=== PATIENT | male | born 1950 | race Caucasian/White ===

== ENCOUNTER 2018-10-29 12:01 | Inpatient (IN) ==
--- NOTE | 2018-10-29 13:11 | Emergency Department Note ---
History of Present Illness General Chief complaint: Cardiac Assessment Stated complaint: on-set afib/sob Source: patient Mode of arrival: ambulatory Limitations: no limitations History of Present Illness This patient is a 68-year-old male who presents to the emergency department from [facility] complaining of intermittent chest pain. He states that for the past 10 days, he has had pain in his chest with exertion. He states that when he walks to the dining diaz, he begins to develop cramps in his upper chest. He states the pain is an 8/10 and radiates into the throat. He states it becomes more severe the more that he exerts himself. The pain subsides when he stops walking and rests. He states that if he takes a leisurely walk, he does not develop chest pain. The last episode of pain was this morning. He states that he was evaluated by the medical team at the half-way and was found to have an abnormal heart rhythm. He states that he does not have any history of arrhythmias. The patient is a smoker. He states he is otherwise healthy. He denies any family history of heart disease. Patient denies any symptoms at this time. He denies any palpitations or shortness of breath. Home Medications Home Medications Medication Instructions Recorded Confirmed Type No Known Home Medications 10/29/18 10/29/18 History Allergies Allergy/AdvReac Type Severity Reaction Status Date / Time No Known Allergies Allergy Unverified 10/29/18 12:55 Past Med/Surg History Medical History Tobacco abuse Family History Mother Heart disease Social History Preferred Language: Kyrgyz Beliefs That Will Affect Care: None Current Living Situation: Other Current Living Situation Comment: [facility] Feels Safe at Home: Yes Smoking Status: Current every day smoker Tobacco Type: cigarettes Cigarettes Per Day: 10 Hx Alcohol Use: No Review of Systems A total of 10 systems reviewed and were otherwise negative Physical Exam Vital Signs Vital Signs - 24 hr 10/29/18 12:10 10/29/18 12:31 10/29/18 13:11 Temperature 36.7 C Temperature Source Oral Sepsis Recent Fever Within 48 Hours No Sepsis New/Unexplained Change in Mental Status No Sepsis Action Taken by Nursing No Action Required Pulse Rate 100 H 95 H 106 H Pulse Rate from SpO2 Sensor 91 H 92 H Pulse Rhythm Irregular Pulse Strength Normal Respiratory Rate 17 20 24 Respiratory Effort / Characteristics Non-Labored Spontaneous Respiratory Depth Normal Respiratory Pattern Regular Blood Pressure 126/79 114/86 142/83 H Blood Pressure Mean 94 95 102 Pulse Oximetry 99 97 97 Oxygen Delivery Method Room Air Room Air Room Air 10/29/18 13:31 10/29/18 14:01 10/29/18 14:31 Temperature Temperature Source Sepsis Recent Fever Within 48 Hours Sepsis New/Unexplained Change in Mental Status Sepsis Action Taken by Nursing Pulse Rate 108 H 100 H 98 H Pulse Rate from SpO2 Sensor 106 H 98 H 111 H Pulse Rhythm Pulse Strength Respiratory Rate 23 24 26 H Respiratory Effort / Characteristics Respiratory Depth Respiratory Pattern Blood Pressure 128/95 113/73 111/88 Blood Pressure Mean 106 86 95 Pulse Oximetry 96 96 97 Oxygen Delivery Method 10/29/18 15:00 Temperature Temperature Source Sepsis Recent Fever Within 48 Hours Sepsis New/Unexplained Change in Mental Status Sepsis Action Taken by Nursing Pulse Rate 106 H Pulse Rate from SpO2 Sensor 100 H Pulse Rhythm Pulse Strength Respiratory Rate 37 H Respiratory Effort / Characteristics Respiratory Depth Respiratory Pattern Blood Pressure 106/77 Blood Pressure Mean 86 Pulse Oximetry 96 Oxygen Delivery Method Room Air VITALS: Vitals are noted on the nurse's note and reviewed by myself. Vital signs stable. GENERAL: This is a 68-year-old male, in no acute distress, nondiaphoretic, well- developed well-nourished. SKIN: The skin was without rashes. EARS: External auditory canals clear, tympanic membranes pearly guerrero without erythema or effusion bilaterally. EYES: Pupils equal round and reactive to light and accommodation. MOUTH: Mucous membranes moist. Tonsils are not enlarged. Pharynx without erythema or exudate. NECK: Supple without nuchal rigidity. No lymphadenopathy. HEART: Irregularly irregular rhythm. No murmurs, gallops, or rubs. LUNGS: Clear to auscultation bilaterally without wheezes, rales or rhonchi. No retractions or accessory muscle use. ABDOMEN: Soft, nontender to palpation. EXTREMITIES: No peripheral edema. NEURO: Patient was alert and oriented to person place and time. Course Administered Medications Enoxaparin Sodium (Lovenox) 40 mg SQ Q24H REGAN Stop: 11/28/18 21:59 Last Admin: 10/29/18 21:41 Dose: 40 mg Documented by: [id number] Metoprolol Tartrate (Lopressor) 25 mg PO Q8H [facility]1983 Stop: 11/28/18 17:59 Last Admin: 10/29/18 18:40 Dose: 25 mg Documented by: [id number] Discontinued Medications Aspirin (Aspirin Chew) 324 mg PO NOW STA Stop: 10/29/18 14:28 Last Admin: 10/29/18 14:47 Dose: 324 mg Documented by: [id number] Heparin Sodium (Porcine) (Heparin Iv Bolus) 6,000 units IV NOW STA Stop: 10/29/18 14:53 Last Admin: 10/29/18 15:38 Dose: 6,000 units Documented by: [id number] Cosigned by: [id number] Heparin Sodium/Dextrose () 1 ea IV NOW [facility]; Protocol Stop: 10/29/18 14:36 Last Admin: 10/29/18 15:38 Dose: Not Given Documented by: [id number] Heparin Sodium/Dextrose (Heparin Sodium/Dextrose) 25,000 units in 500 mls @ 28 mls/hr IV .[id number] [facility], 1928–1983; Protocol Stop: 11/28/18 14:59 Last Titration: 10/29/18 17:05 Dose: 0 units/hr, 0 mls/hr Documented by: [id number] Cosigned by: [id number] Admin: 10/29/18 15:37 Dose: 1,400 units/hr, 28 mls/hr Documented by: [id number] Cosigned by: [id number] Medical Decision Making Differential Diagnosis Differential diagnosis includes acute coronary syndrome, pulmonary embolism, pneumothorax, pericarditis, myocarditis, endocarditis, anxiety, musculoskeletal pain, GERD, costochondritis, pneumonia, among others. Home Medications Current Medication List: was personally reviewed by me Laboratory Data Attestation: I reviewed the patient's lab results. Result diagrams: 10/29/18 12:29 10/29/18 12:29 Lab Results 10/29/18 10/29/18 10/29/18 Range/Units 12:29 12:29 14:51 WBC 5.54 (4.8-10.8) K/uL RBC 4.24 L (4.7-6.1) M/uL Hgb 14.0 (14.0-18.0) g/dL Hct 40.3 L (42-52) % MCV 95.0 (80-100) fL MCH 33.0 (25-34) pg MCHC 34.7 (32-36) g/dL RDW Std Deviation 45.2 (36.4-46.3) fL RDW Coeff of Yue 13.1 (11.5-14.5) % Plt Count 117 L (130-400) K/uL MPV 11.2 H (7.4-10.4) fL Immature Gran % (Auto) 0.0 % Neut % (Auto) 45.0 % Lymph % (Auto) 39.0 % [place] % (Auto) 13.2 % Eos % (Auto) 2.3 % Baso % (Auto) 0.5 % Immature Gran # (Auto) 0.00 (0.00-0.02) K/uL Neut # (Auto) 2.49 (1.4-6.5) K/uL Lymph # (Auto) 2.16 (1.2-3.4) K/uL [place] # (Auto) 0.73 H (0.11-0.59) K/uL Eos # (Auto) 0.13 (0-0.5) K/uL Baso # (Auto) 0.03 (0-0.2) K/uL PT 10.7 (9.0-12.0) Seconds INR 1.0 (0.9-1.1) APTT 28.3 (21.0-31.0) Seconds PTT Ratio 1.0 Sodium 143 (136-145) mmol/L Potassium 4.7 (3.5-5.1) mmol/L Chloride 110 H (98-107) mmol/L Carbon Dioxide 25 (21-32) mmol/L Anion Gap 7.0 (3-11) BUN 26 H (7-18) mg/dl Creatinine 1.13 (0.6-1.4) mg/dl Est Cr Clr Drug Dosing 69.7 ml/min Est GFR ( Amer) 78.1 Est GFR (Non-Af Amer) 67.4 BUN/Creatinine Ratio 22.6 H (10-20) Glucose 90 (70-99) mg/dl Calcium 9.3 (8.5-10.1) mg/dl Total Bilirubin 1.0 (0.2-1) mg/dl AST 23 (15-37) U/L ALT 44 (12-78) U/L Alkaline Phosphatase 120 H (45-117) U/L Troponin I 0.053 H* (0-0.045) ng/ml Total Protein 7.5 (6.4-8.2) gm/dl Albumin 4.0 (3.4-5.0) gm/dl Globulin 3.5 (2.5-4.0) gm/dl Albumin/Globulin Ratio 1.1 (0.9-2) Imaging Data Attestation: I personally reviewed and interpreted this imaging study as follows: Radiologist's Impression: XR chest 1V portable HISTORY: Atypical chest pain COMPARISON: None. FINDINGS: Pneumothorax. No pleural effusions. The heart is mildly enlarged. There is mild diffuse interstitial thickening with a hazy right base airspace opacity. The upper lung zones appear clear. IMPRESSION: 1. Mild diffuse interstitial thickening. This may be chronic. 2. Hazy appearance to the right lung base. This could represent atelectasis or developing pneumonia. ECG Data Attestation: I personally reviewed and interpreted this ECG as follows: Indication: chest pain Rate (beats per minute): 89 Rhythm: atrial fibrillation Findings: no acute ischemic change Comparison ECG Date: no prior available Blood Pressure Blood Pressure Findings: Normal blood pressure MDM Narrative The patient is a 68-year-old male who presents today complaining of episodes of chest pain ongoing over the past 10 days. Patient describes exertional chest pain. He was found to be in new onset atrial fibrillation at the present today. EKG here confirms atrial fibrillation. There are no acute ischemic changes found. Patient was found to have an elevation of his troponin at 0.053. Labs otherwise are unremarkable. Chest x-ray unremarkable. Patient was started on heparin and admitted to the [facility] for further evaluation and care. Impression & Plan Central chest pain, Atrial fibrillation, Elevated troponin Discharge Plan Visit Data *Final* Discharge Date/Time: 10/29/18 16:06 Chief Complaint: Cardiac Assessment Stated Complaint: on-set afib/sob ED Provider: Herrera Merino ED Midlevel Provider: Angelika Hernández Discharge Problem: Central chest pain, Atrial fibrillation, Elevated troponin Patient Disposition: Admitted As Inpatient Discharge Instructions Interventions: ED Discharge Assessment Last Done: 10/29/18 16:06 Discharge Problem: Atrial fibrillation Qualifiers: Atrial fibrillation type: unspecified Qualified Code(s): I48.91 - Unspecified atrial fibrillation
[2018-10-29 13:46] LABS: Basophils # (auto) 0.03 K/uL (0-0.2); Basophils % (auto) 0.5 %; Eosinophils # (auto) 0.13 K/uL (0-0.5); Eosinophils % (auto) 2.3 %; Hematocrit (blood only) 40.3 % (42-52); Lymphocytes # (auto) 2.16 K/uL (1.2-3.4); Mean Corpuscular Hgb Conc 34.7 g/dL (32-36); Mean Platelet Volume 11.2 fL (7.4-10.4); Monocytes # (auto) 0.73 K/uL (0.11-0.59); Monocytes % (auto) 13.2 %; Neutrophils # (auto) 2.49 K/uL (1.4-6.5); Platelet Count 117 K/uL (130-400); RDW Coefficient of Variation 13.1 % (11.5-14.5); RDW Standard Deviation 45.2 fL (36.4-46.3); Red Blood Count 4.24 M/uL (4.7-6.1); White Blood Count 5.54 K/uL (4.8-10.8)
[2018-10-29 13:54] LABS: BUN Creatinine Ratio 22.6 (10-20); Calcium 9.3 mg/dl (8.5-10.1); Creatinine Clr Calc Pharmacy 69.7 ml/min; Est GFR (African American) 78.1; Est GFR (Non-African American) 67.4; Potassium 4.7 mmol/L (3.5-5.1)
[2018-10-29 14:25] LABS: Albumin Globulin Ratio 1.1 (0.9-2); Globulin 3.5 gm/dl (2.5-4.0); Total Protein 7.5 gm/dl (6.4-8.2); Troponin I 0.053 ng/ml (0-0.045)
[2018-10-29] MEDS ORDERED: ASPIRIN 81 MG CHEW PO STA (14:27)
--- NOTE | 2018-10-29 14:50 | XRay Report ---
XR chest 1V portable HISTORY: Atypical chest pain COMPARISON: None. FINDINGS: Pneumothorax. No pleural effusions. The heart is mildly enlarged. There is mild diffuse int erstitial thickening with a hazy right base airspace opacity. The upper lung zones appear clear. IMPRESSION: 1. Mild diffuse interstitial thickening. This may be chronic. 2. Hazy appearance to the right lung base. This could represent atelectasis or developing pneumonia. Electronically signed by: Elliot Desouza M.D. 10/29/2018 2:48 PM
[2018-10-29] MEDS ORDERED: Heparin BOLUS **ED Use Only IV STA (14:52)
[2018-10-29] MEDS ORDERED: Heparin Adult STANDARD Wt-Based Dextrose 5% 25,000 units/500 mL IV SCH (15:00)
[2018-10-29 15:29] LABS: Partial Thromboplastin Time 28.3 Seconds (21.0-31.0); Prothrombin Time 10.7 Seconds (9.0-12.0)
[2018-10-29] MEDS ORDERED: ACETAMINOPHEN 325 MG TAB PO PRN (16:59)
[2018-10-29] MEDS: METOPROLOL TARTRATE 25 MG TAB PO SCH (18:40)
--- NOTE | 2018-10-29 18:55 | History & Physical Report ---
Date of Service October 29, 2018 Assessment & Plan (1) Atrial fibrillation with RVR: No hx of afib. Reports symptoms sounding like afib for several months. - CHADs-Vasc of 1 (age) - Will hold anticoagulation until seen by cardiology - Start beta-noris (metop 50mg PO Q8h) for rate control - Cardiology consult (2) Chest pain: Story is quite convincing for stable angina. No priors stress test or heart history. - Discussed with cardiology - Trend troponins and EKGs - Perfusion stress test tomorrow (3) Tobacco abuse: Long-standing smoking. Down to 06/05 to 06/03 ppd. No hx of COPD or other pulmonary issues. - Counseled cessation (4) DVT prophylaxis: SCDs - Low DVT risk per admission calculator History of Present Illness Primary Care Provider: JAELYN Leone 68yo M w/ hx of smoking who presents with chest pain and afib with RVR. Patient reports that for the last few months, he has had palpitations. He reports it as a "jittery-ness" that he thought was from smoking too much. He has cut back on his smoking down to a handful of cigarettes to try to compensate for this. In the last 9-10 days, he reports stable angina symptoms. When he works himself too hard, he notes chest pain in the left chest without radiation which he reports is accompanied with shortness of breath. He reports that when he sits down and rests, the chest pain resolves. It has never come on when he is resting. He denies any headache, diaphoresis, nausea, GERD, lightheadedness, or dizziness with the pain. He has no relieving factors apart from resting. Allergies Allergy/AdvReac Type Severity Reaction Status Date / Time No Known Allergies Allergy Unverified 10/29/18 12:55 Home Medications Home Medications Medication Instructions Recorded Confirmed Type No Known Home Medications 10/29/18 10/29/18 History Past Med/Surg History Medical History Tobacco abuse Family History Mother Heart disease Social History Preferred Language: Irish Beliefs That Will Affect Care: None Current Living Situation: Other Current Living Situation Comment: [facility] Feels Safe at Home: Yes Smoking Status: Current every day smoker Tobacco Type: cigarettes Cigarettes Per Day: 10 Hx Alcohol Use: No Review of Systems Review of Systems: All systems reviewed & are unremarkable except as noted in HPI & below Physical Exam Constitutional: WD/WN, vitals as above Eyes: EOM intact bilaterally; no conjunctival abnormality ENMT: external ear and nose normal, oropharynx normal Neck: trachea midline, no thyromegaly normal visual inspection Respiratory: normal respiratory effort, lungs clear to auscultation no respiratory distress Cardiovascular: Rate/Rhythm: + tachycardic and + irregularly irregular Gastrointestinal (Abdomen): Inspection/Auscultation: abdomen normal to inspection; abdomen not distended Musculoskeletal: no cyanosis or clubbing, extremities motor strength 5/5 Skin: no rashes, warm and dry Neurologic: moves all extremities and awake Psychiatric: Orientation: alert, oriented to person and cooperative Results & Data Vital Signs (Past 12 Hours) Vital Signs Temp Pulse Pulse Resp BP BP BP 10/29/18 18:38 94 H 110/69 10/29/18 17:36 36.8 C 18 118/73 10/29/18 17:05 36.8 C 18 118/73 10/29/18 16:01 105 H 25 H 106/79 10/29/18 16:00 99 H 26 H 10/29/18 15:31 95 H 24 105/73 10/29/18 15:30 98 H 21 10/29/18 15:00 106 H 37 H 106/77 10/29/18 14:31 98 H 26 H 111/88 10/29/18 14:01 100 H 24 113/73 10/29/18 13:31 108 H 23 128/95 10/29/18 13:11 106 H 24 142/83 H 10/29/18 12:31 95 H 20 114/86 10/29/18 12:10 36.7 C 100 H 17 126/79 Pulse Ox 10/29/18 18:38 10/29/18 17:36 97 10/29/18 17:05 98 10/29/18 16:01 96 10/29/18 16:00 97 10/29/18 15:31 96 10/29/18 15:30 96 10/29/18 15:00 96 10/29/18 14:31 97 10/29/18 14:01 96 10/29/18 13:31 96 10/29/18 13:11 97 10/29/18 12:31 97 10/29/18 12:10 99
[2018-10-29] MEDS ORDERED: ENOXAPARIN INJ 40 MG/0.4 ML SYR SQ SCH (22:00)
[2018-10-30] MEDS: METOPROLOL TARTRATE 25 MG TAB PO SCH ×3 (00:31→18:15)
[2018-10-30] MEDS ORDERED: PNEUMOCOCCAL ADMINISTRATION CHARGE ONE (05:45)
[2018-10-30] MEDS ORDERED: PNEUMOCOCCAL POLYSACCHARIDES 25 MCG/0.5 ML VIAL/SYR IM ONE (05:45)
[2018-10-30 07:39] LABS: Hematocrit (blood only) 38.3 % (42-52); Hemoglobin 13.7 g/dL (14.0-18.0); Mean Corpuscular Hgb Conc 35.8 g/dL (32-36); Mean Corpuscular Volume 94.1 fL (80-100); Mean Platelet Volume 10.8 fL (7.4-10.4); Platelet Count 108 K/uL (130-400); RDW Coefficient of Variation 12.9 % (11.5-14.5); RDW Standard Deviation 44.6 fL (36.4-46.3); Red Blood Count 4.07 M/uL (4.7-6.1); White Blood Count 5.48 K/uL (4.8-10.8)
[2018-10-30 08:08] LABS: BUN Creatinine Ratio 22.6 (10-20); Calcium 8.6 mg/dl (8.5-10.1); Est GFR (African American) 86.3; Est GFR (Non-African American) 74.5; Magnesium 2.2 mg/dl (1.8-2.4); Potassium 4.2 mmol/L (3.5-5.1)
[2018-10-30 08:32] LABS: T4 Free Thyroxine 1.08 ng/dl (0.8-1.6)
[2018-10-30] MEDS ORDERED: MIDAZOLAM HCL 1 MG/ML 2ML VIAL ONE (09:49)
[2018-10-30] MEDS ORDERED: fentaNYL citrate 100 MCG/2 ML VIAL ONE (09:49)
[2018-10-30] MEDS ORDERED: HEPARIN (PORCINE) 1000 UNIT/ML 10 ML (CATH LAB USE ONLY) ONE (09:49)
[2018-10-30] MEDS ORDERED: NiCARDipine HCL INJ 2.5 MG/ML 10 ML AMP ONE (09:49)
[2018-10-30] MEDS ORDERED: NITROGLYCERIN/D5W 100MCG/ML 20ML SYR ONE (09:50)
[2018-10-30] MEDS ORDERED: ADENOSINE IV SOLN 3 MG/ML 20 ML VIAL IV ONE (11:03)
--- NOTE | 2018-10-30 11:19 | Cardiac Catheterization ---
Cardiac Cath Procedure Full Procedure Date October 30, 2018 Pre-Procedure Diagnosis Pre-Procedure Diagnosis: Non STEMI, Angina and Valvular Disease AUC Score AUC Score: 7 Post-Procedure Diagnosis Post-Procedure Diagnosis: Moderate CAD and Normal Intracardiac Pressures Procedure(s) Performed Procedure(s) Performed: Coronary Angiography, Left Heart Cath and Fractional Flow [place] [employer] Officer Anish Trimble MD [employer] Brusher Assembler(s) Ap Estimated Blood Loss Estimated Blood Loss: 10 Medication(s) Medication(s): Fentanyl, Heparin, Lidocaine 1%, Nicardipine and Versed Summary of Findings Indication: Exertional angina, mildly elevated troponin, severe aortic stenosis on echo Access: 6 Fr slender right radial artery Catheters: [place], [id number], [place] 3.5 guide Findings: LM -Short, tapers prior to bifurcation, 30% distal stenosis LAD -30% ostial stenosis, proximal to mid luminal irregularities, no significant distal disease as wraps around apex. Gives off 3 diagonals. Moderate caliber second diagonal with 30% ostial stenosis Circumflex -small to moderate caliber vessel 40 to 50% ostial stenosis RCA -dominant, large caliber vessel, 50% mid segment disease no significant PDA, PLB disease Peak to peak aortic valve pullback gradient of 78 mmHg LVEDP -7 FFR Left main cannulated with [place] 3.5 guide Straight FFR wire placed into LAD. IFR 0.91 RCA then cannulated with IKari 3.5 guide Straight FFR wire placed in the distal RCA. FFR 0.88 Arterial Closure: TR band Summary: 1. Severe aortic stenosis (peak to peak gradient 78 mmHg). 2. Moderate coronary artery disease - 30% distal LM, ostial LAD (iFR 0.91). - 40-50% ostial small circumflex. - 50% mid RCA (FFR 0.88). 3. Normal LV filling pressure Recommendations: Evaluation for aortic valve replacement Continue rate control for atrial fibrillation Continued ASCVD risk factor modification Hemodynamics Rest Ao:: 95/63/78 Final Ao: 104/67/84 LV: 170/7 Recommendations Recommendations: Valve Replacement Specimens Specimens: None Radiation Exposure (mGy) 2738 Contrast (mls) 135 Fluids (cc crystalloids) Fluids (cc crystalloids): 120 Drains Drains: none Anesthesia moderate Procedural Complication(s) None Disposition PCU ACC Data: Choirmaster Cardiac Status Clinical evaluation leading to the procedure CAD Presenation: Non STEMI Anginal Classification: CCS III Heart Failure: No Cardiogenic Shock within 24 Hours: No Cardiac Arrest within 24 Hours: No Imaging Studies Past 6 Months: Yes Stress Studies Past 6 Months: No Diagnostic Physicians Name: Anish Trimble MD Status: Elective Closure Device Percutaneous Entry Location: Radial Closure Device: Radial Band Recommendations: Valve Replacement Intraprocedure Events Significant Disection: No Perforation: No
--- NOTE | 2018-10-30 11:38 | Post Anesthesia Assessment ---
Date of Service October 30, 2018 Post Sedation Assessment Vital Signs Temp Pulse Pulse Resp BP BP BP 10/30/18 03:44 37.1 C 92 H 20 99/60 L 10/30/18 00:05 68 10/29/18 23:26 36.4 C L 76 20 117/60 10/29/18 20:00 37.2 C 82 20 116/77 10/29/18 18:38 94 H 110/69 10/29/18 17:36 36.8 C 18 118/73 10/29/18 17:05 36.8 C 18 118/73 10/29/18 16:01 105 H 25 H 106/79 10/29/18 16:00 99 H 26 H 10/29/18 15:31 95 H 24 105/73 10/29/18 15:30 98 H 21 10/29/18 15:00 106 H 37 H 106/77 10/29/18 14:31 98 H 26 H 111/88 10/29/18 14:01 100 H 24 113/73 10/29/18 13:31 108 H 23 128/95 10/29/18 13:11 106 H 24 142/83 H 10/29/18 12:31 95 H 20 114/86 10/29/18 12:10 36.7 C 100 H 17 126/79 Pulse Ox 10/30/18 03:44 95 10/30/18 00:05 10/29/18 23:26 95 10/29/18 20:00 96 10/29/18 18:38 10/29/18 17:36 97 10/29/18 17:05 98 10/29/18 16:01 96 10/29/18 16:00 97 10/29/18 15:31 96 10/29/18 15:30 96 10/29/18 15:00 96 10/29/18 14:31 97 10/29/18 14:01 96 10/29/18 13:31 96 10/29/18 13:11 97 10/29/18 12:31 97 10/29/18 12:10 99 Recovery Score Activity: Moves 4 extremities Respiration: Deep Breath/Cough Circulation: +/-20% PreAnes Value Consciousness: Fully Awake Oxygen Saturation: O2 needed for >90% Discharge Sedation Level of Care: Fast Track Phase II Post Sedation Plan On clinical assessment, the patient appears to have tolerated the sedation without complications. Patient is recovering as anticipated. Patient will continue to be monitored by nursing and may be discharged when sedation discharge criteria are met per below protocol. Upon Completions of procedure and additional 15 minutes continue every 5 minute vital signs and the P.A.R. score; then discharge to a Phase I or Fast Track to Phase II per the following guidelines: * Discharge Patient to appropriate Phase II area if PAR is 8 or greater or return to pre- procedure baseline. The post - procedure orders will be as directed. * If PAR score is less than 8 or not return to pre-procedure baseline then patient will follow Phase I monitoring till PAR is reached for Phase II. The Phase I may be done in procedure room or may call to secure a Phase I area. * If naloxone or flumazenil are used for reversal, hold in Phase I for continued monitoring from when last reversal dose was given for a minimum of 60 minutes or longer pending the nurse and/or physician discretion of patient condition before discharge to Phase II. Please call the Sedation Physician to re-evaluate and complete post-note for discharge to Phase II area. Do NOT discharge from procedure sedation or Phase 1 until post- sedation evaluation note is complete by procedure /sedation MD Sedation Discharge Instructions to be given to the patient at discharge to home.
--- NOTE | 2018-10-30 11:41 | Cardiology Consultation ---
Date of Consultation October 30, 2018 Assessment & Plan (1) Atrial fibrillation with RVR: The patient presented in atrial fibrillation with a rapid ventricular response. Suspect this has been present for approximately 1 month by his history. He has responded appropriately to low-dose beta-blockade. Could consider increasing his dose to 25 mg q.i.d.. Will decide on anticoagulation following his cardiac catheterization. (2) Chest pain: He gives a history of classic exertional angina pectoris which is now class III in severity. This is likely secondary to coronary ischemia, or possibly severe aortic stenosis (based on physical examination). Would not proceed with stress testing as his symptoms occur with minimal exertion. A cardiac catheterization is indicated at this time. Arrangements will be made for later today with Dr. Trimble. (3) Elevated troponin: Mild troponin elevation favors an invasive strategy realizing his class III symptoms. (4) Aortic stenosis: Physical examination is suggest significant aortic stenosis. A quick look at his echocardiogram confirms severe aortic stenosis. We will proceed with cardiac catheterization. History of Present Illness Attending Physician: Sarmad Hall MD History of Present Illness Mr. Barrientos is a 68-year-old male admitted yesterday with exertional chest pain syndrome. This consultation was ordered to assistance cardiac management. Patient claims that he was in his usual state of health until approximately 1 month ago when he began to note intermittent palpitations, especially with exertion. He had no symptoms of lightheadedness, presyncope, or syncope. Rocío roximately 10 days ago, the patient began to note an upper sternal chest tightness after walking approximately 10-12 steps. As he continues to walk, his discomfort intensified and he began to note shortness of breath, and his discomfort radiated to his throat. His symptoms resolved quickly with rest. His symptoms were very reproducible. He is brought to the emergency room with the above complaints. He was noted to be in atrial fibrillation with a rapid ventricular response. He was not experiencing symptoms at rest. His EKG noted atrial fibrillation with rapid ventricular response and nonspecific T-wave abnormality. His initial troponin was mildly elevated at 0.53. The patient has never known of a cardiac event. He has never had a cardiac catheterization or stress test. The patient was seen today in the nuclear medicine suite after the rest portion of his stress test. We have had a long discussion regarding need for a cardiac catheterization. The patient understands and agrees to proceed. Past medical history 1. Osteoporosis 2. Chronic low back pain 3. History of thoracic vertebral fracture Social history The patient is incarcerated at [facility] Smokes 1/2 pack of cigarettes daily No alcohol Family history Father at 98 from old age. Mother at 92 from old age. A brother is alive well A sister at 65 from a carcinoma No early coronary artery disease Review of systems A 10 point review of systems was undertaken and negative except for that described above. Allergies Allergy/AdvReac Type Severity Reaction Status Date / Time No Known Allergies Allergy Unverified 10/29/18 12:55 Home Medications Home Medications Medication Instructions Recorded Confirmed Type No Known Home Medications 10/29/18 10/29/18 History Patient History Medical History Tobacco abuse Family History Mother Heart disease Social History Preferred Language: Indonesian Beliefs That Will Affect Care: None Current Living Situation: Other Current Living Situation Comment: [facility] Feels Safe at Home: Yes Smoking Status: Current every day smoker Tobacco Type: cigarettes Cigarettes Per Day: 10 Hx Alcohol Use: No Hx Substance Use: No Physical Exam Physical Exam: In general is a thin white male in no acute distress. HEENT exam is negative. Neck is supple with delayed and prolonged carotid upstrokes. Transmitted murmurs noted bilaterally. Cardiovascular exam reveals an irregular rhythm with a 3/6 crescendo decrescendo systolic murmur heard loudest at the base, but across the entire precordium. S1 is not audible at the apex. Lungs are clear without rales, rhonchi or wheezes. Abdomen is soft nontender without bruits. Extremities reveal intact radial artery pulses bilaterally. There is no peripheral edema. Results & Data Vital Signs (Past 12 Hours) Vital Signs Temp Pulse Pulse Resp BP Pulse Ox 10/30/18 03:44 37.1 C 92 H 20 99/60 L 95 10/30/18 00:05 68 Laboratory Results CBC notes a hemoglobin of 13.7, adequate 38.3, white count 5.48, platelet count of [id number]. Electrolytes data sodium 139, potassium 4.2, chloride 110, bicarb 23, BUN 24, creatinine 1.04, glucose 89. Initial troponin was 0.053 with follow-up values of 0.073, 0.099, and 0.066. TSH is elevated 9.18. Diagnostic Findings EKG on presentation noted atrial fibrillation with a rapid ventricular response and nonspecific T-wave abnormality. EKG this morning notes atrial fibrillation with a controlled ventricular response and a nonspecific T-wave abnormality. This is confirmed on telemetry monitoring, however, ventricular response increases rapidly with minimal exertion. Chest x-ray shows no acute disease.
--- NOTE | 2018-10-30 13:36 | Hospitalist Progress Note ---
Date of Service October 30, 2018 Assessment & Plan (1) Atrial fibrillation with RVR: No hx of afib. Reports symptoms sounding like afib for several months. - CHADs-Vasc of 1 (age) - Will hold anticoagulation until seen by cardiology - Continue beta-noris (metop 50mg PO Q8h) for rate control - Cath on 10/30 showed non-obstructive CAD, but did show severe aortic stenosis. At present, patient says he would not want surgery and would prefer to attempt medication first. Would be amenable to surgery after he's out of assisted. (2) Chest pain: Due to severe aortic stenosis. Cath on 10/30 showed non-obstructive CAD. - Needs aortic valve replacement, but wants to wait. - Discussed with cardiology (3) Tobacco abuse: Long-standing smoking. Down to 1/4 to 1/2 ppd. No hx of COPD or other pulmonary issues. - Counseled cessation (4) DVT prophylaxis: SCDs - Low DVT risk per admission calculator Subjective No issues while in bed. Right wrist hurts a bit. Review of Systems Review of Systems: All systems reviewed & are unremarkable except as noted in HPI & below Physical Exam Constitutional: WD/WN, vitals as above Eyes: EOM intact bilaterally; no conjunctival abnormality ENMT: external ear and nose normal, oropharynx normal Neck: trachea midline, no thyromegaly normal visual inspection Respiratory: normal respiratory effort, lungs clear to auscultation no respiratory distress Cardiovascular: Rate/Rhythm: + tachycardic and + irregularly irregular Gastrointestinal (Abdomen): Inspection/Auscultation: abdomen normal to inspection; abdomen not distended Musculoskeletal: no cyanosis or clubbing, extremities motor strength 5/5 Skin: no rashes, warm and dry Neurologic: moves all extremities and awake Psychiatric: Orientation: alert, oriented to person and cooperative Results & Data Vital Signs (Past 12 Hours) Vital Signs Temp Pulse Resp BP Pulse Ox 10/30/18 03:44 37.1 C 92 H 20 99/60 L 95
[2018-10-30] MEDS: APIXABAN 5 MG TABLET PO SCH (20:56)
[2018-10-31] MEDS: METOPROLOL TARTRATE 25 MG TAB PO SCH (02:12)
[2018-10-31] MEDS ORDERED: METOPROLOL SUCC 25MG EXT REL TAB PO SCH (09:00)
[2018-10-31] MEDS: APIXABAN 5 MG TABLET PO SCH (09:29)
--- NOTE | 2018-10-31 13:19 | Discharge Summary ---
Date of Service October 31, 2018 Admission HPI Per Admitting Provider 68yo M w/ hx of smoking who presents with chest pain and afib with RVR. Patient reports that for the last few months, he has had palpitations. He reports it as a "jittery-ness" that he thought was from smoking too much. He has cut back on his smoking down to a handful of cigarettes to try to compensate for this. In the last 9-10 days, he reports stable angina symptoms. When he works himself too hard, he notes chest pain in the left chest without radiation which he reports is accompanied with shortness of breath. He reports that when he sits down and rests, the chest pain resolves. It has never come on when he is resting. He denies any headache, diaphoresis, nausea, GERD, lightheadedness, or dizziness with the pain. He has no relieving factors apart from resting. Principal Diagnosis Severe aortic stenosis Discharge Exam Constitutional WD/WN, vitals as above Eyes EOM intact bilaterally; no conjunctival abnormality ENMT external ear and nose normal, oropharynx normal Neck trachea midline, no thyromegaly normal visual inspection Respiratory normal respiratory effort, lungs clear to auscultation no respiratory distress Cardiovascular Rate/Rhythm: + tachycardic and + irregularly irregular Gastrointestinal (Abdomen) Inspection/Auscultation: abdomen normal to inspection; abdomen not distended Musculoskeletal no cyanosis or clubbing, extremities motor strength 5/5 Skin no rashes, warm and dry Neurologic moves all extremities and awake Psychiatric Orientation: alert, oriented to person and cooperative Discharge Data Allergies Allergy/AdvReac Type Severity Reaction Status Date / Time No Known Allergies Allergy Unverified 10/29/18 12:55 Consultations 10/29/18 14:38 ED Decision to Admit Stat 10/29/18 16:59 Consult Cardiology Routine Procedures Performed Operation Date: 10/30/18 10:00 Actual Procedures p Cath, Left with Cors and Vent - Noe Trimble MD s Cineradiography w/Routine Exam - Noe Trimble MD s Fraction Flow [place] SGL Danica - Noe Trimble MD s Fraction Flow [place] Addl Danica Trimble MD Ordered Studies 10/30/18 09:58 CL Cath Imgs for PACS use only Routine Hospital Course (1) Atrial fibrillation with RVR: No hx of afib. Reports symptoms sounding like afib for several months. - CHADs-Vasc of 1 (age) - Will hold anticoagulation until seen by cardiology - Continue beta-noris (metop 50mg PO Q8h) for rate control - Cath on 10/30 showed non-obstructive CAD, but did show severe aortic stenosis. At present, patient says he would not want surgery and would prefer to attempt medication first. Would be amenable to surgery after he's out of long-term. - On 10/30-10/31, he switched back into normal sinus. - Discharged on beta-noris and anticoagulation. Will need to follow up with Dr. Darnell as outpatient and continue to consider surgical intervention for severe aortic stensosis. (2) Chest pain: Due to severe aortic stenosis. Cath on 10/30 showed non-obstructive CAD. - Needs aortic valve replacement, but wants to wait. - Discussed with cardiology (3) Tobacco abuse: Long-standing smoking. Down to 1/4 to 1/2 ppd. No hx of COPD or other pulmonary issues. - Counseled cessation (4) DVT prophylaxis: SCDs - Low DVT risk per admission calculator Total Time Total Time Spent Total Time Spent (In Minutes): 35 Total Time Includes: Examination of the Patient and Communication With Other Providers Discharge Plan Discharge Items [facility] Reason For Visit: CHEST PAIN,NEW AFIB Discharge Diagnosis: Severe aortic stenosis; paroxsymal atrial fibrillation Discharge Goals: Decrease discomfort and Improve disease control Activity: Resume your previous activity Non-emergency contact: Primary Care Provider and Radio Dispatcher Call non-emergency contact if: your symptoms worsen and your pain is not controlled Follow-up/Referrals: Talat Darnell MD [Physician] - (Please see Dr. Darnell in 1 month.) Vasu CHRISTY [Primary Care Provider] - Diet: Regular Addtl Provider Instructions: Mr. Ferrari was admitted to the hospital for chest pain and shortness of breath. He underwent a cardiac catheterization on 10/30 which showed severe aortic stenosis and nonobstructive coronary artery disease. He was started on metoprolol to help control his heart rate and apixaban for stroke prevention. Overnight on 10/30 to 10/31, he converted from atrial fibrillation back into normal sinus rhythm. He will be discharged on metoprolol and apixaban. If apixaban is not in the long-term formulary, he could also be put on Xarelto or warfarin. As his chads-VASC score is only 1, he would not need transitional heparin/Lovenox with the warfarin. He could simply be started at 5 mg/day with INR monitoring. For his severe aortic stenosis, he was encouraged to be transferred to [facility] for likely aortic valve replacement; however, he reported he did not want surgery and declined transfer. He was seen by cardiology (Talat Darnell) who strongly encouraged him to consider transfer and surgery, as delaying his surgical procedure could result in worse cardiac outcomes. However, the patient was adamant that he did not want to proceed with surgery or transfer. As such, he was recommended to have minimal exertion while he remains incarcerated. He reports he will pursue further follow-up and surgical care after he is released from long-term in 4 to 5 months. Again, he was warned that this could have life-threatening repercussions; however, he was accepting of these risks at this time. If you were to change his mind, he can always return to the hospital for further evaluation and treatment. He will continue to have exertional chest pain, shortness of breath, dizziness, and even possible syncope until his aortic valve is definitively treated. Prescriptions: New metoprolol succinate 25 mg Tablet Extended Release 24 Hr 25 mg PO QAM Qty: 1 RF: 0 Eliquis 5 mg Tablet 5 mg PO BID Qty: 2 RF: 0 Stand-Alone Forms: [facility] Discharge Orders: Discharge Order (Routine); Ordered 10/31/18 Ordered By: Sarmad Hall Admission Data Admit Date/Time: 10/30/18 17:12 Attending Provider: Sarmad Hall Admit Provider: Sarmad Hall Primary Care Provider: Vasu CHRISTY Other Providers: Talat Darnell ; Jeferson Solano Service: Telemetry Medical Other Interventions: Discharge Summary Assessment (RN) Last Done: 10/31/18 11:57 DC Date/Time DO NOT enter until pt leaves facility: 10/31/18 11:55
--- NOTE | 2018-11-02 10:11 | Myocardial Perfusion Study ---
Date of Service November 02, 2018 Myocardial Perfusion Study [facility] Myocardial Perfusion Study Report The patient was to have a nuclear stress test performed. However, his symptoms were quite concerning for class III-IV angina pectoris. The patient was sent to the cardiac catheterization laboratory from the nuclear medicine suite without performing the stress portion of the study. Findings: 1. Normal myocardial perfusion at rest. 2. Diaphragm attenuation noted on the rotating images. 3. Cardiomegaly is suspected.
== END 2018-10-31 11:55 | DRG 287 ==
LOC: 2N 12:01 → ED 12:01 → 2N 16:06 → 2S 10-30 10:14

== ENCOUNTER 2018-12-09 09:50 | Inpatient (IN) ==
[2018-12-09 10:30] LABS: Basophils # (auto) 0.04 K/uL (0-0.2); Basophils % (auto) 0.6 %; Eosinophils # (auto) 0.09 K/uL (0-0.5); Eosinophils % (auto) 1.4 %; Hematocrit (blood only) 38.1 % (42-52); Hemoglobin 13.5 g/dL (14.0-18.0); Immature Granulocytes # (auto) 0.01 K/uL (0.00-0.02); Immature Granulocytes % (auto) 0.2 %; Lymphocytes # (auto) 1.59 K/uL (1.2-3.4); Lymphocytes % (auto) 24.9 %; Mean Corpuscular Hgb Conc 35.4 g/dL (32-36); Mean Corpuscular Volume 95.5 fL (80-100); Mean Platelet Volume 11.6 fL (7.4-10.4); Monocytes # (auto) 0.52 K/uL (0.11-0.59); Monocytes % (auto) 8.1 %; Neutrophils # (auto) 4.14 K/uL (1.4-6.5); Neutrophils % (auto) 64.8 %; Platelet Count 142 K/uL (130-400); RDW Coefficient of Variation 13.5 % (11.5-14.5); RDW Standard Deviation 46.9 fL (36.4-46.3); Red Blood Count 3.99 M/uL (4.7-6.1); White Blood Count 6.39 K/uL (4.8-10.8)
[2018-12-09 10:38] LABS: Albumin Level 3.7 gm/dl (3.4-5.0); BUN Creatinine Ratio 25.6 (10-20); Calcium 9.2 mg/dl (8.5-10.1); Est GFR (African American) 64.7; Est GFR (Non-African American) 55.8; Magnesium 2.1 mg/dl (1.8-2.4); Potassium 4.1 mmol/L (3.5-5.1)
[2018-12-09 10:43] LABS: Albumin Globulin Ratio 1.2 (0.9-2); Bilirubin,Total 1.6 mg/dl (0.2-1); Globulin 3.2 gm/dl (2.5-4.0); Total Protein 6.9 gm/dl (6.4-8.2)
--- NOTE | 2018-12-09 10:50 | XRay Report ---
SINGLE VIEW CHEST CLINICAL HISTORY: Atypical chest pain. FINDINGS: An AP, portable, upright chest radiograph is compared to study dated 10/29/2018. The examina tion is degraded by portable technique and patient rotation. The heart is enlarged and there is athe rosclerotic calcification of the thoracic aorta. The pulmonary vasculature is noncongested. Emphysema and chronic interstitial thickening are similar to previous. There is bibasilar scarring/atelectasis . Question patchy airspace consolidation at the medial left lung base. No large pleural effusion is i dentified and no pneumothorax is seen. The skeletal structures are osteopenic. The bony thorax is kenton ssly intact. IMPRESSION: 1. Cardiomegaly and emphysema without radiographic evidence of congestive failure. 2. Question patchy airspace consolidation versus atelectasis at the medial left lung base. Consider c orrelation with a dedicated PA and lateral examination for better assessment. Electronically signed by: Gómez Infante M.D. 12/09/2018 10:49 AM
--- NOTE | 2018-12-09 13:29 | History & Physical Report ---
Date of Service December 09, 2018 Assessment & Plan (1) Aortic stenosis, severe: Symptoms of chest pain and shortness of breath with dyspnea on exertion likely secondary to underlying diagnosis of severe aortic stenosis that was discovered on cardiac catheterization during his last admission. [facility] Supervisor consulted and recommend surgical intervention. Patient is not agreeable to have surgery done he will be transferred to [facility] when bed is available. For now continue medical management with beta-noris and monitor on telemetry closely Present on Admission?: Yes (2) DOYLE (dyspnea on exertion): Elevated BNP greater than 30,000 with symptoms of shortness of breath and dyspnea on exertion concerning for possible congestive heart failure secondary to valvular disease. Patient's respiratory status is stable oxygen is above 90% will consider trial of low-dose diuretics as tolerated. Check 2D echocardiograms to evaluate cardiac systolic function. Present on Admission?: Yes (3) Chest pain, precordial: EKG shows atrial fibrillation with rapid ventricular response, first troponin is negative at 0.03, will trend cardiac enzymes q. 8 hours x 3. Follow-up wrapper stitcher recommendation. Start on aspirin and beta-noris. Last cardiac cath showed nonobstructive coronary artery disease. Present on Admission?: Yes (4) Atrial fibrillation: Atrial fibrillation with RVR secondary to her valvular disease. Patient was on anticoagulation therapy with Coumadin as an outpatient. However due to possible plans for surgical intervention will hold Coumadin for now. Will consult cardiology to determine if patient should be started on heparin drip prior to surgery. Present on Admission?: Yes (5) Tobacco abuse: Encouraged tobacco cessation and counseling. (6) Emphysema lung: Symptoms of shortness of breath and dyspnea on exertion could be likely due to emphysema/COPD and underlying cardiac disease of congestive heart failure. Will start patient on nebulizer therapy and inhaler and oxygen supplement to keep pulse ox greater than 90%. Chest x-ray with evidence of patchy airspace disease in the left medial lung either concerning for atelectasis or pneumonia. WBC count is normal and afebrile less likely concern for pneumonia however will start on empiric azithromycin for 3 days Present on Admission?: Yes (7) Congestive heart failure (CHF): Check echo, strict I's and O's, daily weights and fluid restriction History of Present Illness Chief Complaint: Right-sided chest pain and epigastric pain, Worsening shortness of breath and dyspnea on exertion Primary Care Provider: [facility] Patient is a 68-year-old male with past medical history significant for atrial fibrillation on anticoagulation therapy with Coumadin, severe aortic stenosis and tobacco abuse who Who was transferred to the ED from [facility] for evaluation of right sided chest pain and epigastric pain and worsening shortness of breath with dyspnea on exertion.Shortness of breath is worse at rest and with exertion, positive orthopnea, with worsening chest di scomfort. Patient denies nausea or vomiting or palpitation, denies headaches dizziness lightheadedness or syncopal episode. Of note patient was recently discharged from [facility] on October 31, 2018 after he was admitted for evaluation of chest pain or shortness of breath. Patient had a cardiac catheterization done at that time which showed nonobstructive coronary artery disease and severe aortic stenosis. He was seen by wrapper stitcher Dr. Trimble who recommended for him to have aortic valve replacement however he declined and was [facility]. In the ED he was noted to have atrial fibrillation with heart rate in the 120s. Lab work showed a BNP of 30,000, creatinine 1.32, troponin 0 0.03, potassium 4.1, Chest x-ray showed cardiomegaly with emphysema and patchy airspace consolidation versus atelectasis in the medial left lung base. He was given IV Lopressor prior to transfer to the emergency room. Dr. Trimble was contacted and he recommended that patient to be transferred to [facility] for aortic valve replacement, patient is currently agreeable for surgery however there are no beds available at this time. Allergies Allergy/AdvReac Type Severity Reaction Status Date / Time No Known Allergies Allergy Unverified 12/09/18 10:49 Home Medications Home Medications Medication Instructions Recorded Confirmed Type metoprolol succinate 25 mg PO BID 12/09/18 12/09/18 History warfarin 2.5 mg PO HS 12/09/18 12/09/18 History warfarin 4 mg PO HS 12/09/18 12/09/18 History Past Med/Surg History Medical History Aortic stenosis (Chronic) Tobacco abuse (Chronic) Family History Mother Heart disease Social History Preferred Language: Maori Beliefs That Will Affect Care: None Current Living Situation: Other Current Living Situation Comment: [facility] Feels Safe at Home: Yes Smoking Status: Former smoker Tobacco Type: cigarettes Cigarettes Per Day: 10 Hx Alcohol Use: No Hx Substance Use: No Review of Systems Constitutional: no fever, no chills, no sweats, no malaise and no weakness Eyes: blurry vision Ear, Nose, Mouth, Throat: no ear pain, no tinnitus and no dizziness Respiratory: + dyspnea and + dyspnea on exertion Cardiovascular: + chest pain, + dyspnea, + dyspnea at rest, + dyspnea on exertion, + orthopnea, + paroxysmal nocturnal dyspnea and + palpitations Gastrointestinal: + nausea and + vomiting; no abdominal pain Genitourinary: no urinary frequency Musculoskeletal: no back pain Neurologic: no falls, no generalized weakness, no tingling and no syncope Physical Exam Constitutional: WD/WN, vitals as above Eyes: PERRL, conjunctivae normal, anicteric sclerae ENMT: external ear and nose normal, oropharynx normal Neck: trachea midline, no thyromegaly Respiratory: normal respiratory effort, lungs clear to auscultation normal respiratory effort Auscultation: lungs clear to auscultation bilaterally; no crackles, no rales and no rhonchi Cardiovascular: Rate/Rhythm: + tachycardic and + irregularly irregular Heart Sounds: normal S1 and + murmur Chest (Breasts): normal inspection/palpation of breasts Gastrointestinal (Abdomen): normal bowel sounds, soft, nontender, no hepatosplenomegaly Musculoskeletal: no cyanosis or clubbing, extremities motor strength 5/5 Skin: no rashes, warm and dry Neurologic: PERRL, EOMI, accommodation nl, no face palsy, no dysarthria Psychiatric: Orientation: alert and oriented x 3 Genitourinary: no CVA tenderness Results & Data Vital Signs (Past 12 Hours) Vital Signs Temp Pulse Pulse Resp BP BP Pulse Ox 12/09/18 12:30 91 H 13 97/74 L 96 12/09/18 12:00 95 H 18 97/79 L 95 12/09/18 11:30 99 H 23 102/78 95 12/09/18 11:03 105 H 18 101/69 97 12/09/18 10:36 107 H 22 103/68 97 12/09/18 09:57 36.6 C 117 H 20 118/59 L 95 Laboratory Results 12/09/18 10:07 12/09/18 10:07 Diagnostic Findings SINGLE VIEW CHEST CLINICAL HISTORY: Atypical chest pain. FINDINGS: An AP, portable, upright chest radiograph is compared to study dated 10/29/2018. The examination is degraded by portable technique and patient rotation. The heart is enlarged and there is atherosclerotic calcification of the thoracic aorta. The pulmonary vasculature is noncongested. Emphysema and chronic interstitial thickening are similar to previous. There is bibasilar scarring/atelectasis. Question patchy airspace consolidation at the medial left lung base. No large pleural effusion is identified and no pneumothorax is seen. The skeletal structures are osteopenic. The bony thorax is grossly intact. IMPRESSION: 1. Cardiomegaly and emphysema without radiographic evidence of congestive failure. 2. Question patchy airspace consolidation versus atelectasis at the medial left lung base. Consider correlation with a dedicated PA and lateral examination for better assessment. Code Status & VTE Plan VTE Prophylaxis Plan VTE Prophylaxis will be ordered: Yes PG Care Time/CCT Total # of Minutes Spent Total Time Spent with Patient: Total time spent is greater than 50% in coordination of care (as documented) at patient's floor/unit and/or counseling patient: (1) Atrial fibrillation Atrial fibrillation type: unspecified Qualified Code(s): I48.91 - Unspecified atrial fibrillation
[2018-12-09] MEDS ORDERED: POLYETHYLENE (MIRALAX) 17 GM PACK PO PRN (14:20)
[2018-12-09] MEDS ORDERED: IPRATROPIUM BROMIDE/ALBUTEROL respimat INH INH PRN (14:20)
[2018-12-09] MEDS ORDERED: ALUMINUM/MAGNESIUM SUSP 30 ML UDC PO PRN (14:20)
[2018-12-09] MEDS ORDERED: NITROGLYCERIN SL 0.4 MG/TAB TAB SL PRN (14:20)
[2018-12-09] MEDS ORDERED: AZITHROMYCIN 250 MG TAB PO SCH (14:20)
[2018-12-09] MEDS ORDERED: ONDANSETRON INJ 2 MG/ML 2 ML VIAL IV PRN (14:20)
[2018-12-09] MEDS ORDERED: ACETAMINOPHEN 325 MG TAB PO PRN (14:20)
[2018-12-09 15:16] VITALS: TEMP 97.5
[2018-12-09] MEDS ORDERED: LEVALBUTEROL 1.25MG/0.5ML NEB NEB SCH (16:00)
--- NOTE | 2018-12-09 16:51 | Emergency Department Note ---
Entered by Cathi Sky acting as a scribe for Grover Marques MD History of Present Illness General Chief complaint: Cardiac Assessment Source: patient History of Present Illness Provider complaint: exertional shortness of breath Onset (ago): day(s) 3 Location: chest Quality: + other (shortness of breath) Relieved By: + other (laying flat) Associated symptoms: + denies other symptoms (abdominal pain, leg swelling) and + chest pain (and tightness when he walks); no fever/chills and no nause a/vomiting The patient is a 68 year old male with nonocclusive CAD and a history of aortic stenosis who presents to the Emergency Department with complaints of increasing exertional shortness of breath over the last 3 days. The patient states that he has been unable to sleep as laying flat exacerbates his shortness of breath. The patient reports having upper chest pain and tightness when he walks. The patient states that resting does help to alleviate his chest pain and states that he does not get chest pain while sitting. The patient states that he can walk about 15 feet before he gets very short of breath. The patient reports having an occasional headache over the last 2 days but states that Tylenol took it away. He denies having any fevers, vomiting, abdominal pain, or leg swelling. The patient denies having chest pain currently and states that he cannot feel his heart racing. He states that he is on a blood thinner. He denies a history of hyperlipidemia. The patient states that he refused to be transferred the last time he was seen here as he was going to [place]. He previously was admitted for chest pain in September and refused transfer for AVR but now says he wants to have it done. He was given 25 Lopressor PO prior to arrival. 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 and A total of 10 systems reviewed and were otherwise negative Physical Exam Vital Signs Vital Signs - 24 hr 12/09/18 09:57 12/09/18 10:36 12/09/18 11:03 Temperature 36.6 C Temperature Source Oral Sepsis Recent Fever Within 48 Hours No Sepsis New/Unexplained Change in Mental Status No Sepsis Action Taken by Nursing No Action Required Pulse Rate 117 H 107 H Pulse Rate [Right Finger] 105 H Pulse Rate from SpO2 Sensor 109 H Respiratory Rate 20 22 18 Respiratory Effort / Characteristics Non-Labored Spontaneous Respiratory Depth Normal Blood Pressure 118/59 L 103/68 Blood Pressure [Left Arm] 101/69 Blood Pressure Mean 78 79 Blood Pressure Mean [Left Arm] 79 Pulse Oximetry 95 97 97 Oxygen Delivery Method Room Air Room Air Room Air 12/09/18 11:30 12/09/18 12:00 12/09/18 12:30 Temperature Temperature Source Sepsis Recent Fever Within 48 Hours Sepsis New/Unexplained Change in Mental Status Sepsis Action Taken by Nursing Pulse Rate 99 H 95 H 91 H Pulse Rate [Right Finger] Pulse Rate from SpO2 Sensor 105 H 111 H 87 Respiratory Rate 23 18 13 Respiratory Effort / Characteristics Respiratory Depth Blood Pressure 102/78 97/79 L 97/74 L Blood Pressure [Left Arm] Blood Pressure Mean 86 85 81 Blood Pressure Mean [Left Arm] Pulse Oximetry 95 95 96 Oxygen Delivery Method Room Air Room Air Room Air 12/09/18 13:00 Temperature Temperature Source Sepsis Recent Fever Within 48 Hours Sepsis New/Unexplained Change in Mental Status Sepsis Action Taken by Nursing Pulse Rate 96 H Pulse Rate [Right Finger] Pulse Rate from SpO2 Sensor 96 H Respiratory Rate 19 Respiratory Effort / Characteristics Respiratory Depth Blood Pressure 104/81 Blood Pressure [Left Arm] Blood Pressure Mean 88 Blood Pressure Mean [Left Arm] Pulse Oximetry 95 Oxygen Delivery Method Constitutional: Vital signs reviewed. Eyes: Pupils are equal round reactive to light. Conjunctiva are noninjected. ENT: Pharynx is clear without erythema or exudate. Mucous membranes are moist. Neck supple without meningeal signs. Respiratory: Clear to auscultation bilaterally. Breath sounds are equal bilaterally. Cardiovascular: Irregularly irregular rhythm. Tachycardic. Systolic murmur in the right second ICS. No radiation to the carotids. GI: Soft, nondistended and nontender. Bowel sounds are present. Musculoskeletal: No peripheral edema. No lower extremity tenderness. Integumentary: No cyanosis. Neurological: The patient is awake and alert. No focal deficits. Psychiatric: Normal affect. Course 1012: The patient was evaluated in room B5. A history and physical were performed. 1127: I discussed the patient's case with Dr. Dugan who said to transfer the patient to [facility]. 1134: I updated the patient on the plan. 1141: I discussed the patient's case with Dr. Grayson Michaels who was agreeable to transfer the patient. He stated that patient logistics says there may not be a bed until tomorrow. 1147: I explained to the patient that [facility] has accepted but may not have a bed until tomorrow. He is happy to stay here until he can be transferred tomorrow as he does not want to go to another facility. 1149: I discussed the patient's case with Dr. Cavazos who will evaluate the patient for further management. Consultations Consultation #1: Dr. Dugan Time: 11:27 Consultation #2: Dr. Ulloa Cardiology Time: 11:41 Consultation #3: Dr. Patel-Jing Time: 11:49 Administered Medications Azithromycin (Zithromax) 500 mg PO QAM [facility] Stop: 12/12/18 13:44 Last Admin: 12/09/18 15:35 Dose: 500 mg Documented by: [id number] Levalbuterol HCl (Xopenex 1.25mg/0.5ml Neb) 1.25 mg NEB Q8R [facility] Stop: 01/08/19 15:59 Last Admin: 12/09/18 15:38 Dose: 1.25 mg Documented by: [id number] Medical Decision Making Differential Diagnosis Differentials include critical , atrial fibrillation with RVR, exertional angina, CA, electrolyte abnormality, and anemia. Medical Records Attestation: I reviewed the patient's medical records. The patient was here in September for chest pain with atrial fibrillation and RVR. He had a cardiac catheterization which showed non-obstructive CAD but severe aortic stenosis. He was discharged on beta blockers and anticoagulation. He preferred medical management to surgery. His echocardiogram showed severe aortic stenosis with severe regurgitation. Home Medications Current Medication List: was personally reviewed by me Laboratory Data Attestation: I reviewed the patient's lab results. Result diagrams: 12/09/18 10:07 12/09/18 10:07 Lab Results 12/09/18 12/09/18 12/09/18 Range/Units 10: 10: 10:26 WBC 6.39 (4.8-10.8) K/uL RBC 3.99 L (4.7-6.1) M/uL Hgb 13.5 L (14.0-18.0) g/dL Hct 38.1 L (42-52) % MCV 95.5 (80-100) fL MCH 33.8 (25-34) pg MCHC 35.4 (32-36) g/dL RDW Std Deviation 46.9 H (36.4-46.3) fL RDW Coeff of Yue 13.5 (11.5-14.5) % Plt Count 142 (130-400) K/uL MPV 11.6 H (7.4-10.4) fL Immature Gran % (Auto) 0.2 % Neut % (Auto) 64.8 % Lymph % (Auto) 24.9 % Lee % (Auto) 8.1 % Eos % (Auto) 1.4 % Baso % (Auto) 0.6 % Immature Gran # (Auto) 0.01 (0.00-0.02) K/uL Neut # (Auto) 4.14 (1.4-6.5) K/uL Lymph # (Auto) 1.59 (1.2-3.4) K/uL Lee # (Auto) 0.52 (0.11-0.59) K/uL Eos # (Auto) 0.09 (0-0.5) K/uL Baso # (Auto) 0.04 (0-0.2) K/uL Sodium 140 (136-145) mmol/L Potassium 4.1 (3.5-5.1) mmol/L Chloride 109 H (98-107) mmol/L Carbon Dioxide 24 (21-32) mmol/L Anion Gap 7.0 (3-11) BUN 34 H (7-18) mg/dl Creatinine 1.32 (0.6-1.4) mg/dl Est Cr Clr Drug Dosing 58.0 ml/min Est GFR ( Amer) 64.7 Est GFR (Non-Af Amer) 55.8 BUN/Creatinine Ratio 25.6 H (10-20) Glucose 126 H (70-99) mg/dl Calcium 9.2 (8.5-10.1) mg/dl Magnesium 2.1 (1.8-2.4) mg/dl Total Bilirubin 1.6 H (0.2-1) mg/dl AST 26 (15-37) U/L ALT 48 (12-78) U/L Alkaline Phosphatase 134 H (45-117) U/L POC Troponin I < 0.03 (0-0.045) ng/ml NT-Pro-B Natriuret Pep 01663 H (0-900) pg/ml Total Protein 6.9 (6.4-8.2) gm/dl Albumin 3.7 (3.4-5.0) gm/dl Globulin 3.2 (2.5-4.0) gm/dl Albumin/Globulin Ratio 1.2 (0.9-2) Imaging Data Radiologist's Impression: Radiology results as stated below per my review and the radiologist's interpretation: SINGLE VIEW CHEST CLINICAL HISTORY: Atypical chest pain. FINDINGS: An AP, portable, upright chest radiograph is compared to study dated 10/29/2018. The examination is degraded by portable technique and patient rotation. The heart is enlarged and there is atherosclerotic calcification of the thoracic aorta. The pulmonary vasculature is noncongested. Emphysema and chronic interstitial thickening are similar to previous. There is bibasilar scarring/atelectasis. Question patchy airspace consolidation at the medial left lung base. No large pleural effusion is identified and no pneumothorax is seen. The skeletal structures are osteopenic. The bony thorax is grossly intact. IMPRESSION: 1. Cardiomegaly and emphysema without radiographic evidence of congestive failure. 2. Question patchy airspace consolidation versus atelectasis at the medial left lung base. Consider correlation with a dedicated PA and lateral examination for better assessment. Electronically signed by: Gómez Infante M.D. 12/09/2018 10:49 AM ECG Data Attestation: I personally reviewed and interpreted this ECG as follows: Indication: SOB/dyspnea Rate (beats per minute): 118 Rhythm: atrial fibrillation Findings: + other (nonspecifit T-wave changes in the inferiorlateral leads ); no PVC Comparison ECG Date: from (10/29/18) Change: the following changes noted (T wave changes are new) Blood Pressure Blood Pressure Findings: Normal blood pressure MDM Narrative I did evaluate the patient as noted above. The patient is presenting with progressive dyspnea on exertion with chest pain. He states he has a history of left ear and was told that he needed surgery but wanted to try medical managemen t first. He feels he is getting worse and so presents today. He is currently not having any chest pain or shortness of breath. IV access was established. The patient was placed on a continuous telemetry monitor. He is occasionally tachycardic on the monitor. I did order and personally review the patient's 12- lead EKG as described above. He has atrial fibrillation with RVR. He has some nonspecific T wave changes. I did order and personally reviewed the images of the patient's chest x-ray as described above. He has some cardiomegaly. There is no evidence of failure. I did order and review the patient's blood work as noted in the electronic medical record. He is mildly anemic. Troponin is negative. I did discuss the test results with the patient. His tachycardia is resolved. I did discuss the case with the centrifugal screen tender to recommend that he be transferred to [facility] for AVR. I did speak to the centrifugal screen tender at [facility]. They did accept the patient for transfer. Unfortunately the facility did not have any beds available and stated that they would likely not have any beds until tomorrow. The patient will therefore be hospitalized here until a bed at [facility] is available. I did discuss the case with the hospitalist and dependency case manager. Impression & Plan DOYLE (dyspnea on exertion), Chest pain, precordial, Aortic stenosis, severe, Atrial fibrillation with RVR (Ruled Out): Chest pain Discharge Plan Visit Data *Final* Discharge Date/Time: 12/09/18 13:52 Chief Complaint: Cardiac Assessment ED Provider: Grover Marques Discharge Problem: DOYLE (dyspnea on exertion), Chest pain, precordial, Aortic stenosis, severe, Atrial fibrillation with RVR Discharge Problem: (Ruled Out): Chest pain Patient Disposition: Admitted As Inpatient Discharge Instructions Interventions: ED Discharge Assessment Last Done: 12/09/18 13:52 The scribe's documentation has been prepared under my direction and personally reviewed by me in its entirety. I confirm that the note above accurately reflects all work, treatment, procedures, and medical decision making performed by me.
--- NOTE | 2018-12-09 17:04 | Cardiology Consultation ---
Date of Consultation December 09, 2018 Assessment & Plan (1) Aortic stenosis: 2. Atrial fibrillation with RVR 3. Moderate nonobstructive multivessel coronary artery disease 4. Mild CARIDAD 5. Question COPD Patient with severe symptomatic aortic stenosis and now willing to undergo AVR. Feel worsening of symptoms may be in part secondary to Atrial fibrillation with RVR and recommend improved rate control. Endorses orthopnea and BNP elevated on admission. Minimal congestion on exam but reasonable to try low-dose diuretics for some degree of acute diastolic heart failure. Going forward: Resume metoprolol 25 mg twice daily, give dose this afternoon 20 of p.o. Lasix today Start heparin infusion Start aspirin, statin Transfer to [facility] for cardiac surgery evaluation when bed available. Thank you for allowing us to participate in the care of this patient. Please contact with any questions. History of Present Illness Attending Physician: Sydnie Patel MD History of Present Illness Mr. Barrientos is a 68-year-old prisoner with a history of recently diagnosed severe aortic stenosis who returns with progressive shortness of breath, chest pain. Patient was previously admitted on 10/30/2018 with 1 month palpitations and substernal chest tightness with exertion. Had a mildly elevated troponin. EKG showed atrial fibrillation with RVR. Underwent cardiac catheterization which showed moderate multivessel disease (30% distal left main/ostial LAD, 40 to 50% ostial circumflex, 50% mid RCA, LAD/RCA nonobstructive by FFR) and severe aortic stenosis with a peak to peak pullback gradient of 78 mmHg. Echocardiogram showed low normal systolic function EF 50%, mild MR and severe left ear with a peak velocity of 4.6, mean gradient of 57, calculated aortic valve area of 0.4. Discussion was had at that time regarding transfer to tertiary center for aortic valve replacement but patient declined. Discharged on metoprolol and Eliquis. Initially did well and reconsidered surgery and now willing to undertake but was hoping to wait until out of [place] in April. However, over the last several weeks especially over the last 3 days has noted progressive shortness of breath, short of breath just getting out of bed and chest tightness with walking more than 10 to 15 feet. This is associated with occasional palpitations and orthopnea, sleeping upright for last several days. Denies lower extremity edema. Denies presyncope. Taking blood thinner at institution. In A. fib with RVR upon admission. Given bronchodilators with some improvement shortness of breath. Feeling better this afternoon. Remains in A. fib with heart rates in the 100s 120s. Minimally elevated troponin. 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 No JVD. Lungs: Clear to auscultation bilaterally, no rhonchi or wheezes Cardiac: Tachycardic, irregular irregular, 3 out of 6 systolic ejection murmur heard best the right upper sternal border, late peaking Vascular: 2+ radial, diminished DP/PT pulses. No varicosities Abdomen: Soft, nontender, nondistended, positive bowel sounds. Extremities: Distal lower extremities cool, no significant edema Skin: No rashes or lesions. Neuro: Nonfocal Psych: Alert orient x3, normal affect and mood Results & Data Vital Signs (Past 12 Hours) Vital Signs Temp Pulse Pulse Resp BP BP Pulse Ox 12/09/18 15:38 76 18 97 12/09/18 15:14 36.4 C L 104 H 20 105/70 98 12/09/18 15:06 115 H 12/09/18 14:20 106 H 24 104/71 96 12/09/18 13:30 100 H 25 H 97/65 L 93 12/09/18 13:00 96 H 19 104/81 95 12/09/18 12:30 91 H 13 97/74 L 96 12/09/18 12:00 95 H 18 97/79 L 95 12/09/18 11:30 99 H 23 102/78 95 12/09/18 11:03 105 H 18 101/69 97 12/09/18 10:36 107 H 22 103/68 97 12/09/18 09:57 36.6 C 117 H 20 118/59 L 95 Laboratory Results EKGatrial fibrillation with RVR, ventricular rate of 118, nonspecific ST of normality. Repeat troponin 0.066, proBNP greater than 30,000 Chest x-ray, no acute cardiopulmonary process
[2018-12-09] MEDS ORDERED: METOPROLOL TARTRATE 1 MG/ML VIAL IV PRN (17:52)
[2018-12-09 19:38] VITALS: O2SAT 95
[2018-12-09] MEDS ORDERED: METOPROLOL SUCC 25MG EXT REL TAB PO SCH (21:00)
[2018-12-09 21:18] VITALS: BP 105/70; PULSE 130
[2018-12-10] MEDS ORDERED: ASPIRIN 81 MG ECTAB PO SCH (09:00)
--- NOTE | 2018-12-11 20:38 | Discharge Summary ---
Date of Service December 11, 2018 Admission HPI Per Admitting Provider Patient is a 68-year-old male with past medical history significant for atrial fibrillation on anticoagulation therapy with Coumadin, severe aortic stenosis and tobacco abuse who Who was transferred to the ED from [facility] for evaluation of right sided chest pain and epigastric pain and worsening shortness of breath with dyspnea on exertion.Shortness of breath is worse at rest and with exertion, positive orthopnea, with worsening chest discomfort. Patient denies nausea or vomiting or palpitation, denies headaches dizziness lightheadedness or syncopal episode. Of note patient was recently discharged from [facility] on October 31, 2018 after he was admitted for evaluation of chest pain or shortness of breath. Patient had a cardiac catheterization done at that time which showed nonobstructive coronary artery disease and severe aortic stenosis. He was seen by store hand Dr. Trimble who recommended for him to have aortic valve replacement however he declined and was transferred back to the care home. In the ED he was noted to have atrial fibrillation with heart rate in the 120s. Lab work showed a BNP of 30,000, creatinine 1.32, troponin 0 0.03, potassium 4.1, Chest x-ray showed cardiomegaly with emphysema and patchy airspace consolidation versus atelectasis in the medial left lung base. He was given IV Lopressor prior to transfer to the emergency room. Dr. Trimble was contacted and he recommended that patient to be transferred to [facility] for aortic valve replacement, patient is currently agreeable for surgery however there are no beds available at this time. Principal Diagnosis Critical aortic stenosis Discharge Data Allergies Allergy/AdvReac Type Severity Reaction Status Date / Time No Known Allergies Allergy Unverified 12/09/18 10:49 Consultations 12/09/18 11:53 ED Decision to Admit Stat 12/09/18 14:20 Consult Cardiology Routine Consult Case Management - Discharge Planning Routine Hospital Course (1) Aortic stenosis, severe: Symptoms of chest pain and shortness of breath with dyspnea on exertion likely secondary to underlying diagnosis of severe aortic stenosis that was discovered on cardiac catheterization during his last admission. Hvac Lead consulted and recommend surgical intervention. Patient is not agreeable to have surgery done he will be transferred to [facility] when bed is available. For now continue medical management with beta-noris and monitor on telemetry closely (2) DOYLE (dyspnea on exertion): Elevated BNP greater than 30,000 with symptoms of shortness of breath and dyspnea on exertion concerning for possible congestive heart failure secondary to valvular disease. Patient's respiratory status is stable oxygen is above 90% will consider trial of low-dose diuretics as tolerated. Check 2D echocardiograms to evaluate cardiac systolic function. (3) Chest pain, precordial: EKG shows atrial fibrillation with rapid ventricular response, first troponin is negative at 0.03, will trend cardiac enzymes q. 8 hours x 3. Follow-up store hand recommendation. Start on aspirin and beta-noris. Last cardiac cath showed nonobstructive coronary artery disease. (4) Atrial fibrillation: Atrial fibrillation with RVR secondary to her valvular disease. Patient was on anticoagulation therapy with Coumadin as an outpatient. However due to possible plans for surgical intervention will hold Coumadin for now. Will consult cardiology to determine if patient should be started on heparin drip prior to surgery. (5) Tobacco abuse: Encouraged tobacco cessation and counseling. (6) Emphysema lung: Symptoms of shortness of breath and dyspnea on exertion could be likely due to emphysema/COPD and underlying cardiac disease of congestive heart failure. Will start patient on nebulizer therapy and inhaler and oxygen supplement to keep pulse ox greater than 90%. Chest x-ray with evidence of patchy airspace disease in the left medial lung either concerning for atelectasis or pneumonia. WBC count is normal and afebrile less likely concern for pneumonia however will start on empiric azithromycin for 3 days (7) Congestive heart failure (CHF): Check echo, strict I's and O's, daily weights and fluid restriction Total Time Total Time Spent Total Time Spent (In Minutes): Total time spent in discharging patient was 25 minutes Discharge Plan Discharge Items Patient Disposition: Transfer Acute Care Hospital Reason For Visit: SHORTNESS OF BREATH, CHEST PAIN H/O SEVERE AORTIC Discharge Diagnosis: critical Aortic Stenosis severe shortness of breath Condition: Serious Discharge Goals: Therapeutic intervention Specific Goals: correction of aortic stenosis Activity: As commented below Activity Comment: OOB to chair with assist Lifting: None Bathing: No limitations Sexual Activity: Wait until after follow-up appointment Exercise/Sports: Wait until after follow-up appointment Driving/Machine Use Comment: wait until after follow-up appointment Weightbearing: Left weightbearing and Right weightbearing Non-emergency contact: Primary Care Provider Call non-emergency contact if: you have any medication questions Follow-up/Referrals: [facility] [Primary Care Provider] - Diet: Nothing by mouth Addtl Provider Instructions: to be transferred to [facility] Prescriptions: Continued metoprolol succinate 25 mg tablet extended release 24 hr 25 mg PO BID RF: 0 Discontinued warfarin 2.5 mg Tablet 2.5 mg PO HS RF: 0 warfarin 4 mg Tablet 4 mg PO HS RF: 0 Stand-Alone Forms: [facility] Discharge Orders: Discharge Order (Routine); Ordered 12/09/18 Ordered By: Akbar Walker Admission Data Admit Date/Time: 12/09/18 13:13 Attending Provider: Sydnie Patel Admit Provider: Sydnie Patel Primary Care Provider: Vasu CHRISTY Other Providers: Noe Trimble Service: Telemetry Other Interventions: Discharge Summary Assessment (RN) Last Done: 12/09/18 21:12 Pending Studies at Discharge: No DC Date/Time DO NOT enter until pt leaves facility: 12/09/18 21:47 Supervising Physician Co-Signing Physician Notes The patient was admitted to [facility] at the recommendation of store hand Dr. Anish Trimble, due to no bed availability at [facility] and need for surgical intervention for severe aortic stenosis. Bed availability was anticipated to be the following day, however, a bed became available the evening of 12/09, and transfer arrangements were made to [facility] at that time. Clinical examination and patient status were unchanged. As noted, patient is transferred to [facility] due to care needed there, ie, aortic valve surgery, that is unavailable at this institution.
== END 2018-12-09 21:47 | disposition short-term general hospital (02) | DRG 306 ==
LOC: ED 09:50 → 2S 13:13